=== PATIENT | female | born 1960 | race Caucasian/White ===

== ENCOUNTER → 2022-12-24 | Day surgery (SDC) | payer OTHER ==
[~2022-12-24] MED LIST: Acetaminophen 325 MG Tab PO SCH; Bupivacaine 0.25% 10 ML SDV ONE; Dexamethasone 4 MG/ML 5 ML MDV ONE; HYDROmorphone 0.5 MG/0.5 ML Syringe IVPUSH PRN; Lactated Ringers 1,000 ML IV ONE; Lactated Ringers 1,000 ML IV SCH; Lidocaine 2% 100 MG/5 ML Syringe ONE; Midazolam 1 MG/ML 2 ML SDV ONE; Morphine 8 MG, EPINEPHrine 0.3 MG, Cefuroxime 750 MG, Ketorolac 30 MG, Sodium Chloride ... PRN; Ondansetron 4 MG Tab.DIS PO SCH; Ondansetron 4 MG/2 ML SDV IVPUSH PRN; Ondansetron 4 MG/2 ML SDV ONE; Pregabalin 25 MG Cap PO SCH; Propofol 200 MG/20 ML SDV ONE; Sodium Chloride 0.9% 10 ML Syringe FLUSH PRN; Sodium Chloride 0.9% 10 ML Syringe FLUSH SCH; Tranexamic Acid 1,000 MG/10 ML Vial ONE; Triamcinolone Acetonide 40 MG/ML 1 ML SDV ONE; ceFAZolin 2 GM Vial ONE; fentaNYL 100 MCG/2 ML SDV IVPUSH PRN; fentaNYL 100 MCG/2 ML SDV ONE; oxyCODONE 5 MG Tab PO PRN; oxyCODONE ER 10 MG TAB.ER PO SCH
[2022-12-24 16:54] VITALS: BP 106/75; PULSE 63
== END | disposition home or self-care (01) ==
LOC: JD.SDS 09:49
PROVIDERS: ATTEND Orthopaedic Surgery
DX: M16.11 Unilateral primary osteoarthritis, right hip (principal); M17.12 Unilateral primary osteoarthritis, left knee; G89.29 Other chronic pain; F41.9 Anxiety disorder, unspecified; E03.9 Hypothyroidism, unspecified; G43.909 Migraine, unspecified, not intractable, without status migrainosus; F32.A Depression, unspecified; Z88.0 Allergy status to penicillin; Z88.1 Allergy status to other antibiotic agents; Z79.899 Other long term (current) drug therapy; Z79.890 Hormone replacement therapy; Z79.82 Long term (current) use of aspirin
CPT/HCPCS: 0055T; 20610; 27130; 36415; 73501; 86850; 86900; 86901; 97110; 97116; 97161; A9270; C1713; C1776; J0171; J0690; J0697; J1100; J1885; J2250; J2270; J2405; J2704; J3010; J3301; J3490; J7030; J7120; 01214